=== PATIENT | female | born 1955 | race Asian ===

== ENCOUNTER 2021-08-04 06:52 | Day surgery (SDC) | payer OTHER, SELFPAY ==
[~2021-08-04] VITALS: Ht 152.4 cm; Wt 72.6 kg
[2021-08-04] MEDS ORDERED: MIDAZOLAM HCL 5 MG/5 ML VIAL ONE (08:35)
[2021-08-04] MEDS ORDERED: fentaNYL CITRATE/PF 100 MCG/2 ML AMP ONE (08:35)
[2021-08-04] MEDS ORDERED: SIMETHICONE 40 MG/0.6 ML ML ONE (08:35)
[2021-08-04 14:53] VITALS: BP_SYST 114
== END 2021-08-04 11:40 | disposition home or self-care (01) ==
LOC: SDS 06:52 → SMU 06:56 → SDS 11:40
PROVIDERS: ATTEND Internal Medicine Gastroenterology
DX: Z12.11 Encounter for screening for malignant neoplasm of colon (principal); K62.1 Rectal polyp; K64.4 Residual hemorrhoidal skin tags; Z20.822 Contact with and (suspected) exposure to COVID-19; Z79.899 Other long term (current) drug therapy
CPT/HCPCS: 45385; 88305; 99152; G0378; J2250; J3010; U0003

== ENCOUNTER 2022-05-29 13:27 | Emergency (ER) | payer OTHER ==
[~2022-05-29] VITALS: Ht 152.4 cm; Wt 72.6 kg
--- NOTE | 2022-05-29 13:41 | NUR ---
Placed in room 7 . Placed on director of group sales, blood pressure machine and pulse oximeter. To gown for exam. Side rails up. Report given to TAMI HERNANDEZ.
[2022-05-29 13:42] VITALS: BP_SYST 134
--- NOTE | 2022-05-29 14:05 | NUR ---
ER DR. ANNE EXAMINING PT
[2022-05-29 14:16] LABS: BILIRUBIN,URINE NEGATIVE (NEGATIVE); BLOOD, URINE 3+ (NEGATIVE); COLOR,URINE YELLOW (YELLOW); GLUCOSE,URINE NEGATIVE (NEGATIVE); KETONES,URINE NEGATIVE (NEGATIVE); LEUKOCYTE ESTERASE ,URINE 3+ (NEGATIVE); NITRITE, URINE NEGATIVE (NEGATIVE); PROTEIN URINE NEGATIVE (NEGATIVE); UROBILINOGEN,URINE 0.2 (0.2-1.0)
[2022-05-29 14:27] LABS: CLARITY/URINE HAZY (CLEAR)
[2022-05-29 14:28] LABS: BACTERIA,URINE FEW /HPF (None Seen); MUCUS,URINE None Seen /LPF (None Seen); RBC,URINE NONE SEEN /HPF (0-3); WBC,URINE 20-50 /HPF (0-3)
[2022-05-29] MEDS ORDERED: PHENAZOPYRIDINE HCL 100 MG TABLET PO ONE (14:30)
[2022-05-29] MEDS ORDERED: cephALEXin 500 MG CAPSULE PO ONE (14:30)
[2022-05-29] MEDS ORDERED: CEPH-548 PO (14:32)
[2022-05-29] MEDS ORDERED: PHEN-890 PO (14:32)
--- NOTE | 2022-05-29 14:48 | NUR ---
BIBS WITH C/C OF DYSURIA, HEMATURIA, AND LOWER PELVIC PAIN. VSS, AFEBRILE. PLEASANT AND COOPERATIVE. NAD NOTED. MEDS PER DR. ANNE GIVEN. PENDING DISPO.
[2022-05-29 15:06] VITALS: BP_SYST 138
--- NOTE | 2022-05-29 15:08 | NUR ---
PT CLEARED FOR DC BY DR. ANNE. JESSICAS, AFEBRILE. NAD NOTED. VERBALIZED UNDERSTANDING OF DC INSTRUCTIONS. RX SENT TO PT'S PHARM. PT AMBULATED OUT OF ED IN STABLE CONDITION.
== END 2022-05-29 15:08 | disposition home or self-care (01) ==
LOC: SED 13:27
DX: N39.0 Urinary tract infection, site not specified (principal); R10.30 Lower abdominal pain, unspecified; R30.9 Painful micturition, unspecified; Z79.899 Other long term (current) drug therapy
CPT/HCPCS: 81000; 87086; 99283